=== PATIENT | male | born 1990 | race Two or more races ===

== ENCOUNTER 2024-10-28 10:01 | Emergency (ER) | payer OTHER, SELFPAY ==
[2024-10-28 10:02] VITALS: BMI 25.8
[2024-10-28 10:09] VITALS: BP 112/68; PULSE 66; RESP 18; TEMP 36.7; O2SAT 97
[2024-10-28] MEDS: LIDOCAINE HCL 1% 20 ML VIAL INFL (10:34)
[2024-10-28] MEDS: DIPHTH,PERTUSS(ACELL),TET VAC 0.5 ML SYR- ADULT IMi (10:34)
[2024-10-28] MEDS: SODIUM CHLORIDE 0.9% 1000 ML 1,000 ML 999 ML IV (10:35)
[2024-10-28 10:38] VITALS: BP 105/49; PULSE 46; RESP 16; O2SAT 99
--- NOTE | 2024-10-28 10:45 | PD.EDWOUND ---
ED Wound/Laceration-RME/HPI General Chief Complaint: Wound/Laceration Stated Complaint: LAC TO RT WRIST WHILE WORKING Time Seen by Provider: 10/28/24 10:16 Arrival date/time: 10/28/24 10:01 34-year-old male presents emergency department today for complaints of laceration to his right wrist patient reports he was working today putting a tree and accidentally cut himself with the nicole Limitations: no limitations Related Data Previous Rx's ?Medication ?Instructions ?Recorded dicyclomine 20 mg tablet 20 mg PO TID PRN pain #30 tabs 06/05/22 ondansetron 4 mg disintegrating 4 mg PO Q8H PRN nausea and 06/05/22 tablet vomiting #10 tabs cephalexin 500 mg capsule 500 mg PO BID 5 days #10 caps 10/28/24 ibuprofen 600 mg tablet 600 mg PO Q6H #30 tabs 10/28/24 Allergies Allergy/AdvReac Type Severity Reaction Status Date / Time No Known Allergies Allergy Verified 10/28/24 10:05 Review of Systems Review of Systems Systems Reviewed: All systems reviewed, normal except as documented Constitutional Constitutional: Reports system reviewed and no additional complaints, except as documented, Denies fever(s) and Denies headache(s) Eyes Eyes: Reports system reviewed and no additional complaints, except as documented and Denies blurry vision ENT Ears, Nose, Mouth, and Throat: Reports system reviewed and no additional complaints, except as documented, Denies headache(s), Denies nasal congestion and Denies nasal discharge Cardiovascular Cardiovascular: Reports system reviewed and no additional complaints, except as documented, Denies chest pain and Denies dyspnea Respiratory Respiratory: Reports system reviewed and no additional complaints, except as documented, Denies chest congestion, Denies cough and Denies dyspnea Gastrointestinal Gastrointestinal: Reports system reviewed and no additional complaints, except as documented and Denies abdominal pain Integumentary/Breasts Skin/Breast: Reports system reviewed and no additional complaints, except as documented, Denies rash and Reports wounds (Laceration right wrist) Neurologic Neurologic: Reports system reviewed and no additional complaints, except as documented, Reports as per HPI and Denies headache(s) Past Medical History Social History SMOKING STATUS: Never smoker ED Exam General Limitations: Present no limitations General appearance: Present alert and in no apparent distress Head Head exam: Present atraumatic, normocephalic and normal inspection Eye Eye exam: Present normal appearance, PERRL and EOMI ENT ENT exam: Present normal exam, normal oropharynx and mucous membranes moist Neck Neck exam: Present normal inspection, full ROM and trachea midline Chest Chest inspection: Present normal inspection and symmetric chest wall rise Respiratory Respiratory exam: Present normal lung sounds bilaterally Cardiovascular Cardiovascular exam: Present regular rate, normal rhythm and normal heart sounds Abdominal Exam Abdominal exam: Present soft and normal bowel sounds Extremities Exam Extremities exam: Present full ROM, tenderness and normal capillary refill; Absent joint swelling Back Exam Back exam: Present normal inspection and full ROM Neurological Exam Neurological exam: Present alert, oriented X3 and CN II-XII intact Psychiatric Psychiatric exam: Present normal affect and normal mood Skin Skin exam: Present warm, dry and other (Laceration right wrist) Course Quality Measures none Orders Category Date Time Status Insert IV NOW Care 10/28/24 10:17 Completed Set Up Suture Tray STAT Care 10/28/24 10:17 Completed Wound Care NOW Care 10/28/24 10:17 Completed Lidocaine 1% 20 ml [Xylocaine 1% 20 ML] Med 10/28/24 10:17 Discontinued 20 ml INFL X1 ONE Sodium Chloride 0.9% 1000 ml [Ns] 1,000 ml Med 10/28/24 10:17 Discontinued IV 999 mls/hr TET,DIP/PERT AC (Adult)-Tdap [Boostrix Adult (Tdap) Med 10/28/24 10:17 Discontinued Vacc] 0.5 ml IMI .ONCE ONE Vital Signs Vital signs: Vital Signs Temperature 98.0 F 10/28/24 10:09 Pulse Rate 66 10/28/24 10:09 Respiratory Rate 18 10/28/24 10:09 Blood Pressure 112/68 10/28/24 10:09 Pulse Oximetry (%) 97 10/28/24 10:09 Oxygen Delivery Method Room Air 10/28/24 10:09 O2 saturation 97% room air within normal limits Procedures -ED Laceration Laceration 1: Site: upper extremity Side (If applicable): right Size (cm): 4 Description: linear Depth: simple, single layer Local Anesthetic: lidocaine 1% Amount of anesthesia used (mL): 5 Pre-repair: irrigated extensively Skin layer closed with: nylon Suture size (cm): 4-0 Number of sutures: 6 Technique: simple, interrupted Wound / Laceration MDM Narrative MDM Narrative:: 34-year-old male presents emergency department today for complaints of laceration to his right wrist patient reports he was working today putting a tree and accidentally cut himself with the nicole On exam patient is approximate 4 cm laceration right wrist wound irrigated copiously laceration repaired with a total of 6 sutures At time of discharge no evidence of bleeding well-appearing Patient has full range of motion of all fingers to make a fist. Patient reports that he feels very woozy secondary to his laceration of his wrist patient was given 1 L of IV fluids reports he feels significantly better patient smiling and active Patient discharged home in no distress to follow-up with primary care doctor in the next 24 to 48 hours and for any worsening symptoms to return to the ER immediately Patient data External records reviewed:: [facility] previous records Clinical information provided by:: patient Social determinants that could affect healthcare access:: none Patient has the following chronic illnesses:: None How is presenting disease/condition affected by chronic disease/condition?: no chronic disease Evaluation data The following diagnostics were reviewed and interpreted by me:: other (specify) (N/A) Lab and/or radiology exams considered but not ordered:: Consider not not ordered Interpretation Summary: N/A Medications / Prescriptions Medications or Prescriptions considered but not ordered:: Given Medication administrations:: Medication Administration History Discontinued Medications Diphtheria/Tetanus/Acell Pertussis (Diphth,Pertuss(Acell),Tet Vac 0.5 Ml Syr- Adult) 0.5 ml IMi .ONCE ONE Stop: 10/28/24 10:18 Last Admin: 10/28/24 10:34 Dose: 0.5 ml Documented By: PETER Sodium Chloride (Ns) 1,000 mls @ 999 mls/hr IV .Q1H1M ONE Stop: 10/28/24 11:17 Last Infusion: 10/28/24 11:45 Dose: Infused Documented By: Admin: 10/28/24 10:35 Dose: 999 mls/hr Documented By: PETER Lidocaine HCl (Lidocaine Hcl 1% 20 Ml Vial) 20 ml INFL X1 ONE Stop: 10/28/24 10:18 Last Admin: 10/28/24 10:34 Dose: 20 ml Documented By: PETER Comments: ADMINISTERED BY PROVIDER. Given Consultations Consultation(s) initiated? (list below): No Diagnosis Wound Differential Diagnosis: laceration, abrasion and avulsion of skin Most likely diagnosis given after review of the tests above:: Laceration Admission Indicated Admission indicated?: not indicated Admission Request Was there a request for admission?: No Disposition Plan Disposition Plan: Discharge Discharge Attestation Discharge Attestation: The patient and all family members were given an opportunity to ask questions and understood the discharge instructions. Discharge instructions specifically effects, indications for sooner follow up or return to the emergency department, and the expected course of current diagnosis. Patient condition: Stable Discharge Plan Plan Patient Disposition: HOME (Self Care) Discharge Disposition comment: Stable Prescriptions/Referrals Prescriptions/Med Rec: New cephalexin 500 mg capsule 500 mg PO BID 5 Days Qty: 10 0RF ibuprofen 600 mg tablet 600 mg PO Q6H Qty: 30 0RF No Action dicyclomine 20 mg tablet 20 mg PO TID PRN (Reason: pain) Qty: 30 0RF ondansetron 4 mg tablet,disintegrating 4 mg PO Q8H PRN (Reason: nausea and vomiting) Qty: 10 0RF Problem List Clinical Impression: Laceration of right wrist, Work related injury Patient/Caregiver Discharge Instructions Education Materials: ED Laceration: All Closures Additional Instructions: Please follow up with your Workmen's Compensation in the next 24-48hrs for any worsening symptoms return here immediately Print Language: Malay Stand Alone Forms: Jackeline Award Info., Patient Portal Info Letter Vaccines Vaccines Given During Stay: TDaP PA/DOG BEAUTICIAN Supervising Physician YUKI/AMANDA Supervising Physician: dr arias
[2024-10-28 12:10] VITALS: BP 97/63; PULSE 73; RESP 16; TEMP 37; O2SAT 98
== END 2024-10-28 12:19 | disposition home or self-care (01) ==
LOC: SERX 10:51
PROVIDERS: Emergency Provider Emergency Medicine
DX: S61.511A Laceration without foreign body of right wrist, initial encounter (principal); W27.8XXA Contact with other nonpowered hand tool, initial encounter; Y93.89 Activity, other specified; Y99.0 Civilian activity done for income or pay
CPT/HCPCS: 12002; 90715; 96360; 99283; J3490; J7030